=== PATIENT | male | born 1950 | race Caucasian/White ===

== ENCOUNTER 2021-08-05 16:35 | Emergency (ER) | payer MEDICARE ==
[2021-08-05] MEDS ORDERED: SODIUM CHLORIDE 0.9% 1,000 ML IV STA (17:11)
--- NOTE | 2021-08-05 17:12 | ED Physician Documentation ---
PD HPI ABD PAIN - Stated complaint Stated Complaint: L ABD PAIN - Chief complaint Chief Complaint: Abd Pain - History obtained from History obtained from: Patient - Additional information Additional information: 70-year-old gentleman with history of diverticulitis x2 developed left lower quadrant pain similar to prior diverticulitis yesterday with profound fatigue today. Some tactile but no measured fevers. Feels similar to prior diverticulitis. He has had very mild nausea. No changes in bowel movements. Had a telehealth visit with his physician yesterday and was started on Cipro and Flagyl last night. Of note patient had an ancillary complaint of a splinter about 1 week old in the right index finger. Review of Systems Ten Systems: 10 systems reviewed and negative Constitutional: reports: Fever, Chills, Fatigue Cardiac: denies: Chest pain / pressure, Palpitations Respiratory: denies: Dyspnea, Cough PD PAST MEDICAL HISTORY - Past Medical History Past Medical History: Yes Cardiovascular: High cholesterol Respiratory: None Neuro: None Endocrine/Autoimmune: None GI: GERD, Diverticulitis : None HEENT: None Psych: None Musculoskeletal: None Derm: None - Past Surgical History Past Surgical History: Yes General: Cholecystectomy HEENT: Tonsil/Adenoidectomy - Present Medications Home Medications: Ambulatory Orders Medication Instructions Recorded Confirmed Atorvastatin [Lipitor] 5 mg ORAL DAILY 08/05/21 08/05/21 Ciprofloxacin HCl [Cipro] 500 mg PO BID 08/05/21 08/05/21 metroNIDAZOLE [Flagyl] 500 mg PO TID 08/05/21 08/05/21 - Allergies Allergies/Adverse Reactions: Allergies Allergy/AdvReac Type Severity Reaction Status Date / Time No Known Drug Allergies Allergy Verified 08/05/21 16:48 - Social History Does the pt smoke?: No Smoking Status: Never smoker Does the pt drink ETOH?: Yes Does the pt have substance abuse?: No - Immunizations Immunizations are current?: Yes PD ED PE NORMAL - Vitals Vital signs reviewed: Yes - General General: Alert and oriented X 3, No acute distress - HEENT HEENT: PERRL, EOMI - Neck Neck: Supple, no meningeal sign, No bony TTP - Cardiac Cardiac: RRR, No murmur - Respiratory Respiratory: No respiratory distress, Clear bilaterally - Abdomen Abdomen: Normal bowel sounds, Soft, Other (Minimal left lower quadrant tenderness without surgical signs) - Back Back: No CVA TTP, No spinal TTP - Derm Derm: Normal color, Warm and dry, Other (Right index finger has a puncture wound with purulent drainage proximally on the anterior surface) - Extremities Extremities: No edema, No calf tenderness / cord - Neuro Neuro: Alert and oriented X 3, Normal speech Results - Vitals Vitals: Vital Signs - 24 hr 08/05/21 08/05/21 16:48 18:36 Temperature 37.6 C Heart Rate 82 71 Respiratory 18 16 Rate Blood Pressure 130/69 152/73 H O2 Saturation 95 99 Oxygen O2 Source Room air - Labs Labs: Laboratory Tests 08/05/21 08/05/21 08/05/21 17:05 17:22 17:22 WBC 11.7 H RBC 5.06 Hgb 16.1 Hct 46.5 MCV 91.9 MCH 31.8 H MCHC 34.6 RDW 15.8 H Plt Count 133 MPV 11.7 H Neut # (Auto) Not Reportable Lymph # (Auto) Not Reportable Bibb # (Auto) Not Reportable Eos # (Auto) Not Reportable Baso # (Auto) Not Reportable Absolute Nucleated RBC Not Reportable Total Counted 100 Band Neuts % (Manual) 4 Reactive Lymphs % (Man) 3 Abnorm Lymph % (Manual) 0 Nucleated RBC % Not Reportable Neutrophils # (Manual) 9.9 H Lymphocytes # (Manual) 0.6 L Monocytes # (Manual) 0.2 Eosinophils # (Manual) 0.8 H Basophils # (Manual) 0.1 Differential Comment MANUAL DIFFERENTIAL Platelet Estimate NORMAL (130-450,000) Platelet Morphology 2+ GIANT PLATELETS RBC Morph Micro Appear NORMAL APPEARANCE Sodium 131 L Potassium 4.1 Chloride 99 L Carbon Dioxide 23 Anion Gap 9.0 BUN 25 H Creatinine 1.3 H Estimated GFR (MDRD) 55 L Glucose 127 H Calcium 7.9 L Total Bilirubin 1.7 H AST 34 ALT 37 Alkaline Phosphatase 84 Total Protein 5.6 L Albumin 3.0 L Globulin 2.6 Albumin/Globulin Ratio 1.2 Lipase 23 Urine Color DARK YELLOW Urine Clarity HAZY Urine pH 5.5 Ur Specific [place] >=1.030 H Urine Protein 100 H Urine Glucose (UA) NEGATIVE Urine Ketones TRACE Urine Occult Blood TRACE-INTA Urine Nitrite POSITIVE H Urine Bilirubin MODERATE H Urine Urobilinogen 1 (NORMAL) Ur Leukocyte Esterase NEGATIVE Urine RBC 0-5 Urine WBC 0-3 Ur Squamous Epith Cells NONE SEEN Amorphous Sediment Rare Urine Bacteria Rare Urine Casts 3-5 Hyaline Casts Urine Mucus Few Strands Ur Microscopic Review INDICATED Urine Culture Comments INDICATED - Rads (name of study) CT A/P Radiology: EMP read contemporaneously Procedures - FB removal FB location: Subcutaneous FB removal preparation: Local anesthesia-specify (2% lido no epi) Removal method: Other (The right hand was prepped and draped and a finger tourniquet was placed. Local infiltration with 2% lidocaine. Tiny incision was made with a #15 blade and a wood foreign body was removed. There was purulent material as well that was cultured.) FB removal aftercare: Removed successfully PD MEDICAL DECISION MAKING - ED course ED course: 70-year-old gentleman presents with apparent flare of recurrent diverticulitis. Examination is relatively unremarkable. Initially we just agreed to do labs and not a CT but with some abnormalities on lab work including leukocytosis, hyponatremia, prerenal azotemia and hypocalcemia the CT was ordered with the findings which were discussed with the patient and discussed need for follow-up and close consultation with primary care physician on return home. Departure - Departure Disposition: 01 Home, Self Care Clinical Impression: Foreign body finger, Pleural effusion, Retroperitoneal lymphadenopathy, Hepatomegaly Abdominal pain Qualifiers: Abdominal location: lower abdomen, unspecified Qualified Code(s): R10.30 - Lower abdominal pain, unspecified Condition: Good Record reviewed to determine appropriate education?: Yes Instructions: ED Abdominal Pain Unkn Cause Male Comments: As discussed, you do have some abnormal findings meriting repeat work-up and consultation with your physician on return home. Notably a mildly elevated white count and bilirubin with low calcium, low sodium. And the CT showing retroperitoneal swollen lymph nodes, a large liver, small spleen, and right more than left pleural effusions. At a minimum, I would presume that your physician will want a repeat CTs in a couple of weeks. Follow-up as soon as you get home. Return if worse. We are performing a wound culture, the results should be done in 48-72 hours. If antibiotic change is necessary we will call you. Return if worse in the meantime, especially if you develop increased pain, fevers, cannot keep down the medication. Otherwise follow-up with your physician in approximately 2-3 days.
[2021-08-05 17:31] LABS: BASOPHILS % (AUTO) 0.3 %; EOSINOPHILS % (AUTO) 6.3 %; HCT - HEMATOCRIT 46.5 % (42.0-52.0); HGB - HEMOGLOBIN 16.1 g/dL (14.0-18.0); LYMPHOCYTES % (AUTO) 8.4 %; MEAN CORPUSCULAR HEMOGLOBIN 31.8 pg (27.0-31.0); MEAN CORPUSCULAR HGB CONC 34.6 g/dL (32.0-36.0); MEAN CORPUSCULAR VOLUME 91.9 fL (80.0-94.0); MEAN PLATELET VOLUME 11.7 fL (7.4-11.4); MONOCYTES % (AUTO) 5.3 %; NEUTROPHILS % (AUTO) 79.3 %; PLT - PLATELET COUNT 133 10^3/uL (130-450); RED BLOOD COUNT 5.06 10^6/uL (4.70-6.10); RED CELL DISTRIBUTION WIDTH 15.8 % (12.0-15.0); WHITE BLOOD COUNT 11.7 x10^3/uL (4.8-10.8)
[2021-08-05] MEDS ORDERED: LIDOCAINE 2% 10 ML MDV SUBQ ONE (17:33)
[2021-08-05] MEDS ORDERED: LIDOCAINE-MPF 2% 5 ML VIAL SUBQ STA (17:36)
[2021-08-05] MEDS ORDERED: lidocaine 1% 20 ML MDV SUBQ ONE (17:36)
[2021-08-05 17:42] LABS: GLUCOSE, URINE (UA) NEGATIVE (NEGATIVE); KETONES,URINE (UA) TRACE mg/dL (NEGATIVE); LEUKOCYTE ESTERASE, URINE NEGATIVE (NEGATIVE); NITRITE,URINE POSITIVE (NEGATIVE); OCCULT BLOOD,URINE TRACE-INTA (NEGATIVE); PH,URINE 5.5 PH (5.0-7.5); PROTEIN,URINE 100 mg/dL (NEGATIVE); UROBILINOGEN,URINE 1 (NORMAL) E.U./dL (NORMAL)
[2021-08-05 17:42] LABS: ALBUMIN/GLOBULIN RATIO 1.2 (1.0-2.2); BILIRUBIN,TOTAL 1.7 mg/dL (0.2-1.0); CALCIUM 7.9 mg/dL (8.5-10.3); CREATININE 1.3 mg/dL (0.6-1.2); POTASSIUM 4.1 mmol/L (3.5-5.0); TOTAL PROTEIN 5.6 g/dL (6.7-8.2)
[2021-08-05 17:50] LABS: ABNORMAL LYMPHS % (MANUAL) 0 %
[2021-08-05 17:51] LABS: AMORPHOUS SEDIMENT,UR Rare /LPF; BACTERIA,URINE Rare /HPF (None Seen); BILIRUBIN,URINE MODERATE (NEGATIVE); CLARITY,URINE HAZY (CLEAR); ICTOTEST,URINE POSITIVE; RBC,URINE 0-5 /HPF (0-5); SQUAMOUS EPITHELIAL CELL,UR NONE SEEN (<= Few); WBC,URINE 0-3 /HPF (0-3)
[2021-08-05 17:52] LABS: MUCUS,URINE Few Strands
[2021-08-05 17:53] LABS: BAND NEUTROPHILS % (MANUAL) 4 %; BASOPHILS # (MANUAL) 0.1 10^3/uL (0-0.1); BASOPHILS % (MANUAL) 1 %; EOSINOPHILS # (MANUAL) 0.8 10^3/uL (0-0.7); LYMPHOCYTES # (MANUAL) 0.6 10^3/uL (1.5-3.5); LYMPHOCYTES % (MANUAL) 2 %; MONOCYTES # (MANUAL) 0.2 10^3/uL (0.0-1.0); NEUTROPHILS # (MANUAL) 9.9 10^3/uL (1.5-6.6); PLATELET ESTIMATE, MANUAL NORMAL (130-450,000) (NORMAL); PLATELET MORPHOLOGY 2+ GIANT PLATELETS (NORMAL); RBC MORPHOLOGY (MULTIPLE) NORMAL APPEARANCE (NORMAL); REACTIVE LYMPHS % (MANUAL) 3 %
[2021-08-05 17:54] LABS: DIFFERENTIAL COMMENT MANUAL DIFFERENTIAL
[2021-08-05] MEDS ORDERED: CALCIUM GLUCONATE IN NS 0.9% 1,000 MG/50 ML BAG IV STA (17:56)
[2021-08-05] MEDS ORDERED: IOVERSOL 320 50 ML VIAL ONE (18:10)
[2021-08-05] MEDS ORDERED: IOVERSOL 320 50 ML VIAL IVP ONE (18:20)
--- NOTE | 2021-08-05 18:40 | CT Report ---
PROCEDURE: Abdomen/Pelvis W INDICATIONS: IV only, LLQ pain CONTRAST: IV CONTRAST: Optiray 320 ml: 100 PO CONTRAST: *NO PO CONTRAST TECHNIQUE: After the administration of intravenous contrast, 5 mm thick sections acquired from the diaphragms t o the symphysis. 5 mm thick coronal and sagittal reformats were acquired. For radiation dose reduct ion, the following was used: automated exposure control, adjustment of mA and/or kV according to pat ient size. COMPARISON: None. FINDINGS: Image quality: Excellent. ABDOMEN: Lung bases: Small right effusion and trace left pleural effusion. There is bilateral basilar atelecta sis.. Heart size is probably increased. No pericardial effusion. Solid organs: Liver is slightly enlarged. Spleen is small. Gallbladder is surgically absent Biliary system is non dilated. Pancreas enhances normally. No adrenal nodules. Kidneys demonstrate normal size and enhancement, without hydronephrosis. Peritoneum and bowel: Bowel loops demonstrate normal wall thickness and caliber. Normal appendix. T here are colonic diverticula. There is a small amount of amount of free fluid in peritoneal cavity. N o free air. Nodes and vessels: There are numerous mildly enlarged mesenteric lymph nodes measuring up to 1.2 cm i n short axis. Borderline sized para-aortic and aortocaval lymph nodes are also identified. Retroperit mcclelland or mesenteric adenopathy by size criteria. Aorta and inferior vena cava are normal in size. Miscellaneous: No ventral hernias. PELVIS: Genitourinary: Bladder wall thickness is normal. Miscellaneous: Borderline enlarged inguinal nodes are present laterally. There is small containing i nguinal hernias laterally. Bones: No suspicious bony lesions. No vertebral body compression fractures. IMPRESSION: 1. Diverticulosis. No definitive diverticulitis. 2. There is mesenteric adenopathy with numerous mildly enlarged mesenteric lymph nodes. Borderline en larged retroperitoneal lymph nodes and inguinal lymph nodes are also noted. The CT findings are nonsp ecific. Differential diagnoses include reactive lymphadenopathy, lymphoma or metastasis. 3. Small amount of free fluid in peritoneal cavity. 4. Hepatomegaly. 5. Spleen is small. 6. Small right pleural effusion and trace left pleural effusion. There are periventricular atelectasi s. Reviewed by: Catarino Scott MD on 08/05/2021 6:39 PM PDT Approved by: Catarino Scott MD on 08/05/2021 6:39 PM PDT Station ID: [id number]
[2021-08-05 19:29] VITALS: BP 149/69
== END 2021-08-05 19:29 | disposition home or self-care (01) ==
LOC: ED 16:35
DX: R10.30 Lower abdominal pain, unspecified (principal); S60.450A Superficial foreign body of right index finger, initial encounter; D72.829 Elevated white blood cell count, unspecified; E80.7 Disorder of bilirubin metabolism, unspecified; E83.51 Hypocalcemia; E87.1 Hypo-osmolality and hyponatremia; R59.0 Localized enlarged lymph nodes; R16.0 Hepatomegaly, not elsewhere classified; D73.0 Hyposplenism; J90 Pleural effusion, not elsewhere classified
CPT/HCPCS: 10120; 36415; 80053; 81001; 81003; 83690; 85025; 87086; 99284